=== PATIENT | female | born 1960 | race Caucasian/White ===

== ENCOUNTER → 2023-07-10 15:45 | Outpatient (REF) | payer BC, SELFPAY | LOC: RAD 15:45 | PROVIDERS: ATTENDING PHYSICIAN Internal Medicine | DX: M25.552 Pain in left hip (principal); M25.551 Pain in right hip | CPT/HCPCS: 73502 ==

== ENCOUNTER → 2024-02-26 09:21 | Outpatient (REF) | payer BC, SELFPAY | LOC: HWWDC 09:21 | PROVIDERS: ATTENDING PHYSICIAN Internal Medicine | DX: Z12.31 Encounter for screening mammogram for malignant neoplasm of breast (principal) | CPT/HCPCS: 77063; 77067 ==

== ENCOUNTER → 2024-07-04 09:59 | Outpatient (REF) | payer BC, SELFPAY | LOC: HWRAD 09:59 | PROVIDERS: ATTENDING PHYSICIAN Internal Medicine | DX: R10.11 Right upper quadrant pain (principal) | CPT/HCPCS: 76700 ==